=== PATIENT | female | born 2000 | race Caucasian/White ===

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

== ENCOUNTER 2018-01-05 18:35 | Emergency (ER) | payer MEDICAID ==
[~2018-01-05] VITALS: Ht 152.4 cm; Wt 59.0 kg
[~2018-01-05 18:35] MED LIST changes: +AMOXICILLIN500 M2 PO
[2018-01-05 18:36] VITALS: BP 127/73
== END 2018-01-05 19:36 | disposition home or self-care (01) ==
LOC: ED 18:35
DX: O9A.213 Injury, poisoning and certain other consequences of external causes complicating pregnancy, third trimester (principal); T17.890A Other foreign object in other parts of respiratory tract causing asphyxiation, initial encounter; Z3A.34 34 weeks gestation of pregnancy; Y92.9 Unspecified place or not applicable

== ENCOUNTER 2018-02-06 21:09 | Emergency (ER) | payer OTHER ==
[~2018-02-06] VITALS: Ht 152.4 cm; Wt 54.4 kg
[2018-02-06 23:09] VITALS: BP 112/78
== END 2018-02-06 23:20 | disposition short-term general hospital (02) ==
LOC: ED 21:09
DX: O63.0 Prolonged first stage (of labor) (principal); Z3A.37 37 weeks gestation of pregnancy

== ENCOUNTER 2018-02-22 18:00 | Emergency (ER) | payer OTHER ==
[~2018-02-22] VITALS: Ht 152.4 cm; Wt 49.9 kg
[2018-02-22 18:02] VITALS: BP 114/69
[2018-02-22] MEDS ORDERED: CEPHALEXIN500 M1 PO (18:19)
== END 2018-02-22 18:45 | disposition home or self-care (01) ==
LOC: ED 18:00
DX: N61.0 Mastitis without abscess (principal); F41.9 Anxiety disorder, unspecified

== ENCOUNTER 2018-10-05 22:26 | Emergency (ER) | payer OTHER ==
[~2018-10-05] VITALS: Ht 152.4 cm; Wt 45.4 kg
[~2018-10-05 22:26] MED LIST changes: +CEPHALEXIN500 M1 PO; +PYRIDIUM200 M1 PO; +SEPTDS PO
[2018-10-05 22:27] VITALS: BP 127/75
[2018-10-05] MEDS ORDERED: AUGMENTIN 875-875 MG PO (22:39)
[2018-10-05] MEDS ORDERED: NAPROSYN500 MG PO (22:39)
== END 2018-10-05 22:43 | disposition home or self-care (01) ==
LOC: ED 22:26
DX: K02.9 Dental caries, unspecified (principal); Z79.2 Long term (current) use of antibiotics; Z79.899 Other long term (current) drug therapy; Z87.442 Personal history of urinary calculi

== ENCOUNTER 2018-11-04 21:14 | Emergency (ER) | payer OTHER ==
[~2018-11-04] VITALS: Ht 152.4 cm; Wt 49.9 kg
[~2018-11-04 21:14] MED LIST changes: +AUGMENTIN 875-875 MG PO; +NAPROSYN500 MG PO
[2018-11-04 21:15] VITALS: BP 124/72
[2018-11-04 21:49] LABS: BASO % 0.3 % (0.0-1.0); EOS # 0.1 10*3/uL (0.0-0.4); EOS % 1.9 % (1.0-4.0); HEMATOCRIT 36.2 % (37.0-47.0); HEMOGLOBIN 11.6 g/dl (12.0-16.0); LYMPH # 2.6 10*3/uL (1.3-4.4); LYMPH % 38.5 % (27.0-41.0); MEAN CELL VOLUME 85.2 fl (81.0-99.0); MEAN CORPUSCULAR HGB 27.3 pg (27.0-31.0); MEAN PLATELET VOLUME 10.3 fl (9.6-12.3); MONO # 0.4 10*3/uL (0.1-1.0); MONO % 6.4 % (3.0-9.0); NEUT # 3.5 10*3/uL (2.3-7.9); NEUT % 52.8 % (47.0-73.0); PLATELET COUNT AUTOMATED 304 10*3/uL (130-400); RED BLOOD COUNT 4.25 10*6/uL (4.10-5.10); RED CELL DISTRI WIDTH 16.6 % (0-14.5); WHITE BLOOD COUNT 6.7 10*3/uL (4.8-10.8)
[2018-11-04 22:00] LABS: BILIRUBIN NEGATIVE (NEGATIVE); BLOOD TRACE-INTACT (NEGATIVE); CLARITY CLEAR (CLEAR); COLOR YELLOW (YELLOW); GLUCOSE NEGATIVE (NEGATIVE); KETONE NEGATIVE (NEGATIVE); LEUKO ESTERASE NEGATIVE (NEGATIVE); NITRITE NEGATIVE (NEGATIVE); PH 6.5 (5.0-9.0); SPECIFIC GRAVITY 1.015 (1.005-1.030); UROBILINOGEN 0.2 E.U./dl (0.2-1.0)
[2018-11-04 22:06] LABS: BACTERIA 1+; WBC 0-2 wbc/hpf (0-5)
[2018-11-04 22:11] LABS: ALBUMIN 3.5 gm/dl (3.1-4.5); ALKALINE PHOSPHATASE 111 U/L (45-117); BUN 13 mg/dl (7-24); CHLORIDE 107 mmol/L (98-107); CREATININE 0.83 mg/dL (0.55-1.02); LIPASE 102 U/L (73-393); POTASSIUM 3.9 mmol/L (3.5-5.1); SGOT/AST 10 IU/L (3-35); SGPT/ALT 17 U/L (12-78); SODIUM 140 mmol/L (136-145); TOTAL PROTEIN 7.2 gm/dL (6.4-8.2)
[2018-11-08 20:08] LABS: GONOCOCCUS BY NAA Negative (Negative)
[2019-02-22] MEDS ORDERED: PREDNISONE20 M1 PO (11:26)
[2019-02-22] MEDS ORDERED: AMOXICILLIN500 M2 PO (11:26)
[2019-02-22] MEDS ORDERED: FLONASE ALLERG9.9 ML NAS (11:26)
== END 2018-11-04 22:49 ==
LOC: ED 21:14
PROVIDERS: Student in an Organized Health Care Education/Training Program
DX: R10.9 Unspecified abdominal pain (principal); M54.5 Low back pain; F17.200 Nicotine dependence, unspecified, uncomplicated; Z79.899 Other long term (current) drug therapy

== ENCOUNTER 2019-05-14 13:34 | Emergency (ER) | payer SELFPAY ==
[~2019-05-14] VITALS: Ht 152.4 cm; Wt 49.9 kg
[~2019-05-14 13:34] MED LIST changes: +FLONASE ALLERG9.9 ML NAS; +PREDNISONE20 M1 PO
[2019-05-14 13:35] VITALS: BP 107/66
[2019-05-14] MEDS ORDERED: ZYRTEC10 MG PO (14:34)
[2019-05-14] MEDS ORDERED: AMOXICILLIN500 M2 PO (14:34)
[2019-05-14] MEDS ORDERED: FLONASE ALLERG9.9 ML NAS (14:34)
== END 2019-05-14 15:33 | disposition home or self-care (01) ==
LOC: ED 13:34
DX: J32.9 Chronic sinusitis, unspecified (principal); F17.200 Nicotine dependence, unspecified, uncomplicated; Z32.02 Encounter for pregnancy test, result negative; Z79.899 Other long term (current) drug therapy; Z79.2 Long term (current) use of antibiotics

== ENCOUNTER 2019-10-19 20:59 | Emergency (ER) | payer OTHER ==
[~2019-10-19] VITALS: Wt 49.9 kg
[~2019-10-19 20:59] MED LIST changes: +ZYRTEC10 MG PO
[2019-10-19 21:10] VITALS: BP 132/72
[2019-10-19 21:57] LABS: BILIRUBIN NEGATIVE (NEGATIVE); CLARITY CLOUDY (CLEAR); COLOR YELLOW (YELLOW); GLUCOSE NEGATIVE (NEGATIVE); KETONE NEGATIVE (NEGATIVE)
[2019-10-19 21:58] LABS: BLOOD NEGATIVE (NEGATIVE); LEUKO ESTERASE TRACE (NEGATIVE); NITRITE NEGATIVE (NEGATIVE); UROBILINOGEN 0.2 E.U./dl (0.2-1.0)
[2019-10-19] MEDS ORDERED: PROAIR HFA8.5 GM INH (22:40)
[2019-10-19] MEDS ORDERED: PREDNISONE20 M1 PO (22:40)
[2019-10-19] MEDS ORDERED: TESSALON PERLE100 M1 PO (22:40)
[2019-10-22 04:08] LABS: GONOCOCCUS BY NAA Negative (Negative)
== END 2019-10-19 23:28 | disposition home or self-care (01) ==
LOC: ED 20:59
PROVIDERS: Physician Assistant
DX: J40 Bronchitis, not specified as acute or chronic (principal); M54.5 Low back pain; R30.0 Dysuria; N89.8 Other specified noninflammatory disorders of vagina; Z20.2 Contact with and (suspected) exposure to infections with a predominantly sexual mode of transmission; F17.200 Nicotine dependence, unspecified, uncomplicated; Z79.899 Other long term (current) drug therapy; Z79.2 Long term (current) use of antibiotics

== ENCOUNTER 2020-03-29 23:58 | Emergency (ER) | payer OTHER ==
[~2020-03-29] VITALS: Ht 152.4 cm; Wt 50.8 kg
[~2020-03-29 23:58] MED LIST changes: +PROAIR HFA8.5 GM INH; +TESSALON PERLE100 M1 PO
[2020-03-30 00:49] LABS: BASO % 0.2 % (0.0-1.0); EOS % 0.8 % (1.0-4.0); HEMATOCRIT 40.1 % (37.0-47.0); LYMPH # 2.1 10*3/uL (1.3-4.4); LYMPH % 39.3 % (27.0-41.0); MEAN CELL VOLUME 87.7 fl (81.0-99.0); MEAN CORPUSCULAR HGB CONC 31.9 g/dl (33.0-37.0); MEAN PLATELET VOLUME 10.3 fl (9.6-12.3); MONO # 0.3 10*3/uL (0.1-1.0); MONO % 5.9 % (3.0-9.0); NEUT # 2.8 10*3/uL (2.3-7.9); NEUT % 53.6 % (47.0-73.0); PLATELET COUNT AUTOMATED 259 10*3/uL (130-400); RED BLOOD COUNT 4.57 10*6/uL (4.10-5.10); RED CELL DISTRI WIDTH 15.9 % (0-14.5); WHITE BLOOD COUNT 5.2 10*3/uL (4.8-10.8)
[2020-03-30 01:06] LABS: ALBUMIN 3.8 gm/dl (3.1-4.5); ALKALINE PHOSPHATASE 131 U/L (45-117); BUN 9 mg/dl (7-24); CHLORIDE 107 mmol/L (98-107); CREATININE 0.54 mg/dL (0.55-1.02); POTASSIUM 3.7 mmol/L (3.5-5.1); SGOT/AST 61 IU/L (3-35); SGPT/ALT 227 U/L (12-78); SODIUM 141 mmol/L (136-145); TOTAL PROTEIN 8.1 gm/dL (6.4-8.2)
[2020-03-30 01:07] LABS: BACTERIA 4+; BILIRUBIN NEGATIVE (NEGATIVE); BLOOD 1+ (NEGATIVE); CLARITY SL CLOUDY (CLEAR); COLOR YELLOW (YELLOW); EPITHELIAL CELLS 16-20; GLUCOSE NEGATIVE (NEGATIVE); KETONE NEGATIVE (NEGATIVE); LEUKO ESTERASE 1+ (NEGATIVE); NITRITE POSITIVE (NEGATIVE); SPECIFIC GRAVITY 1.015 (1.005-1.030)
[2020-03-30 01:32] LABS: URINE AMPHETAMINES < 1000 (1000ng/ml); URINE BARBITURATES < 200 (200ng/ml); URINE BENZODIAZEPINES < 200 (200ng/ml); URINE CANNABINOIDS (THC) > 50 (50ng/ml); URINE COCAINE > 300 (300ng/ml); URINE METHADONE < 300 (300ng/ml); URINE OPIATES > 300 (300ng/ml); URINE PHENCYCLIDINE < 25 (25ng/ml)
[2020-03-30 03:36] VITALS: BP 110/58
[2020-03-30] MEDS ORDERED: CEPHALEXIN500 M1 PO (04:06)
== END 2020-03-30 04:55 | disposition home or self-care (01) ==
LOC: ED 23:58
PROVIDERS: Emergency Medicine; Physician Assistant
DX: N39.0 Urinary tract infection, site not specified (principal); F19.10 Other psychoactive substance abuse, uncomplicated; R11.10 Vomiting, unspecified

== ENCOUNTER 2021-02-08 22:11 | Emergency (ER) | payer OTHER ==
[2021-02-08 22:25] LABS: BILIRUBIN Negative (Negative); BLOOD Negative (Negative); CLARITY Clear (Clear); COLOR Yellow (Yellow); GLUCOSE Negative (Negative); KETONE Trace (Negative); LEUKO ESTERASE Trace (Negative); NITRITE Negative (Negative); PH 5.5 (4.5-8.0); SPECIFIC GRAVITY >= 1.030 (1.001-1.030)
[2021-02-08 23:03] LABS: URINE AMPHETAMINES > 1000 (1000ng/ml); URINE BARBITURATES < 200 (200ng/ml); URINE BENZODIAZEPINES < 200 (200ng/ml); URINE CANNABINOIDS (THC) > 50 (50ng/ml); URINE COCAINE > 300 (300ng/ml); URINE METHADONE < 300 (300ng/ml); URINE OPIATES < 300 (300ng/ml)
[2021-02-08 23:04] LABS: URINE PHENCYCLIDINE < 25 (25ng/ml)
[2021-02-08 23:16] LABS: BACTERIA 1+; EPITHELIAL CELLS 21-30
[2021-02-09] VITALS: BP 134/78
[2021-02-09 00:08] LABS: BASO % 0.2 % (0.0-1.0); EOS # 0.1 10*3/uL (0.0-0.4); EOS % 0.6 % (1.0-4.0); HEMATOCRIT 40.7 % (37.0-47.0); LYMPH % 27.9 % (27.0-41.0); MEAN CELL VOLUME 84.3 fl (81.0-99.0); MEAN CORPUSCULAR HGB 28.6 pg (27.0-31.0); MEAN CORPUSCULAR HGB CONC 33.9 g/dl (33.0-37.0); MEAN PLATELET VOLUME 9.7 fl (9.6-12.3); MONO # 0.8 10*3/uL (0.1-1.0); MONO % 7.2 % (3.0-9.0); NEUT # 6.9 10*3/uL (2.3-7.9); NEUT % 63.8 % (47.0-73.0); PLATELET COUNT AUTOMATED 259 10*3/uL (130-400); RED BLOOD COUNT 4.83 10*6/uL (4.10-5.10); RED CELL DISTRI WIDTH 14.2 % (0-14.5); WHITE BLOOD COUNT 10.8 10*3/uL (4.8-10.8)
[2021-02-09 00:30] LABS: BUN 20 mg/dl (7-24); CHLORIDE 103 mmol/L (98-107); CREATININE 0.78 mg/dL (0.55-1.02); POTASSIUM 3.3 mmol/L (3.5-5.1); SODIUM 136 mmol/L (136-145)
== END 2021-02-09 06:07 | disposition home or self-care (01) ==
LOC: ED 22:11
PROVIDERS: Internal Medicine
DX: T50.901A Poisoning by unspecified drugs, medicaments and biological substances, accidental (unintentional), initial encounter (principal); R41.82 Altered mental status, unspecified; E87.6 Hypokalemia; Z79.899 Other long term (current) drug therapy; Z79.2 Long term (current) use of antibiotics; Y92.89 Other specified places as the place of occurrence of the external cause

== ENCOUNTER 2022-01-22 21:15 | Emergency (ER) | payer OTHER ==
[~2022-01-22] VITALS: Ht 154.9 cm; Wt 45.4 kg
[2022-01-22 21:27] VITALS: BP 134/100
[2022-01-22 21:55] LABS: HEMATOCRIT 44.4 % (37.0-47.0); MEAN CELL VOLUME 83.9 fl (81.0-99.0); MEAN CORPUSCULAR HGB 26.5 pg (27.0-31.0); MEAN CORPUSCULAR HGB CONC 31.5 g/dl (33.0-37.0); MEAN PLATELET VOLUME 9.4 fl (9.6-12.3); PLATELET COUNT AUTOMATED 212 10*3/uL (130-400); RED BLOOD COUNT 5.29 10*6/uL (4.10-5.10); RED CELL DISTRI WIDTH 15.9 % (0-14.5); WHITE BLOOD COUNT 2.3 10*3/uL (4.8-10.8)
[2022-01-22 21:56] LABS: MANUAL DIFF REFLEX YES
[2022-01-22 22:09] LABS: ALKALINE PHOSPHATASE 103 U/L (45-117); BUN 10 mg/dl (7-24); CHLORIDE 107 mmol/L (98-107); CREATININE 0.84 mg/dL (0.55-1.02); POTASSIUM 4.2 mmol/L (3.5-5.1); SGOT/AST 18 IU/L (3-35); SGPT/ALT 22 U/L (12-78); SODIUM 140 mmol/L (136-145)
[2022-01-22 22:11] VITALS: BP 129/82
[2022-01-22 22:12] LABS: B-hCG (QUALITATIVE) NEGATIVE (NEGATIVE)
[2022-01-22 22:29] LABS: ATYPICAL LYMPHS 3 % (0-0); PLATELET SUFFICIENCY NORMAL (NORMAL); TOTAL CELLS COUNTED 100 #CELLS
[2022-01-22 23:00] VITALS: BP 118/72
[2022-01-23 00:14] VITALS: BP 105/54
[2022-01-23 01:33] VITALS: BP 100/58
== END 2022-01-23 02:16 | disposition left against medical advice (07) ==
LOC: ED 21:15 → EDHOLD 01-23 01:04 → ED 01-23 01:04
PROVIDERS: Physician Assistant
DX: A41.9 Sepsis, unspecified organism (principal); L02.611 Cutaneous abscess of right foot; L03.115 Cellulitis of right lower limb; R00.0 Tachycardia, unspecified; E16.2 Hypoglycemia, unspecified; D72.819 Decreased white blood cell count, unspecified; F17.200 Nicotine dependence, unspecified, uncomplicated

== ENCOUNTER 2022-01-23 08:46 | Inpatient (IN) | payer OTHER ==
[~2022-01-23] VITALS: Ht 154.9 cm; Wt 47.9 kg
[2022-01-23] VITALS (9 sets, daily range): BP systolic 88–134; BP diastolic 48–86
[2022-01-23 09:56] LABS: BASO % 0.3 % (0.0-1.0); EOS % 0.3 % (1.0-4.0); HEMATOCRIT 38.5 % (37.0-47.0); LYMPH % 50.8 % (27.0-41.0); MEAN CELL VOLUME 84.4 fl (81.0-99.0); MEAN CORPUSCULAR HGB 26.8 pg (27.0-31.0); MEAN CORPUSCULAR HGB CONC 31.7 g/dl (33.0-37.0); MEAN PLATELET VOLUME 10.4 fl (9.6-12.3); MONO # 0.2 10*3/uL (0.1-1.0); MONO % 5.2 % (3.0-9.0); NEUT # 1.7 10*3/uL (2.3-7.9); NEUT % 43.4 % (47.0-73.0); PLATELET COUNT AUTOMATED 201 10*3/uL (130-400); RED BLOOD COUNT 4.56 10*6/uL (4.10-5.10); RED CELL DISTRI WIDTH 15.9 % (0-14.5); WHITE BLOOD COUNT 3.9 10*3/uL (4.8-10.8)
[2022-01-23 10:04] LABS: ALKALINE PHOSPHATASE 96 U/L (45-117); BUN 6 mg/dl (7-24); CHLORIDE 109 mmol/L (98-107); CREATININE 0.57 mg/dL (0.55-1.02); LIPASE 41 U/L (73-393); POTASSIUM 3.5 mmol/L (3.5-5.1); SGOT/AST 14 IU/L (3-35); SGPT/ALT 18 U/L (12-78); SODIUM 138 mmol/L (136-145); TOTAL PROTEIN 8.3 gm/dL (6.4-8.2)
[2022-01-23 10:08] LABS: ACT PARTIAL THROMBO TIME 30.8 SECONDS (20.0-32.1)
[2022-01-23 10:13] LABS: BETA-HCG, QUANT < 1.0 mIU/mL (1-3)
[2022-01-23 17:05] LABS: BILIRUBIN Negative (Negative); BLOOD Negative (Negative); CLARITY Clear (Clear); COLOR Yellow (Yellow); GLUCOSE Negative (Negative); KETONE Negative (Negative); LEUKO ESTERASE Negative (Negative); NITRITE Negative (Negative); SPECIFIC GRAVITY 1.025 (1.001-1.030)
[2022-01-23 17:14] LABS: BACTERIA 1+; MUCOUS 2+; WBC 0-2 wbc/hpf (0-5)
[2022-01-23 17:15] LABS: URINE AMPHETAMINES > 1000 (1000ng/ml); URINE BARBITURATES < 200 (200ng/ml); URINE BENZODIAZEPINES < 200 (200ng/ml); URINE CANNABINOIDS (THC) > 50 (50ng/ml); URINE COCAINE > 300 (300ng/ml); URINE METHADONE < 300 (300ng/ml); URINE OPIATES > 300 (300ng/ml)
[2022-01-23 17:24] LABS: URINE PHENCYCLIDINE < 25 (25ng/ml)
== END 2022-01-24 00:30 | disposition left against medical advice (07) | DRG 720 ==
LOC: ED 08:46 → EDHOLD 10:13 → 4E 15:12
PROVIDERS: Emergency Medicine; Internal Medicine; ADMIT Internal Medicine; ATTEND Internal Medicine
PROC: 0JBQ0ZZ Excision of Right Foot Subcutaneous Tissue and Fascia, Open Approach (ICD-10-PCS; principal; 2022-01-23)
DX: A41.9 Sepsis, unspecified organism (principal); L02.611 Cutaneous abscess of right foot; D70.9 Neutropenia, unspecified; E87.8 Other disorders of electrolyte and fluid balance, not elsewhere classified; F17.210 Nicotine dependence, cigarettes, uncomplicated; S91.301A Unspecified open wound, right foot, initial encounter; F14.10 Cocaine abuse, uncomplicated; F19.90 Other psychoactive substance use, unspecified, uncomplicated; Z53.29 Procedure and treatment not carried out because of patient's decision for other reasons; Z79.51 Long term (current) use of inhaled steroids; Z79.899 Other long term (current) drug therapy; Y93.89 Activity, other specified; Y92.89 Other specified places as the place of occurrence of the external cause; Y99.8 Other external cause status

== ENCOUNTER → 2023-12-11 | Outpatient (CLI) | payer MEDICAID | END | disposition home or self-care (01) | LOC: LAB 08:09 | PROVIDERS: ATTEND Nurse Practitioner | DX: F11.20 Opioid dependence, uncomplicated (principal) ==

== ENCOUNTER 2024-01-08 16:00 | Emergency (ER) | payer MEDICAID ==
[~2024-01-08] VITALS: Ht 154.9 cm; Wt 51.3 kg
[2024-01-08 16:09] VITALS: BP 135/78
[2024-01-08] MEDS ORDERED: BUPRENORPHINE-1 EAC1 SL (16:10)
[2024-01-08] MEDS ORDERED: GABAPENTIN600 MG PO (16:10)
[2024-01-08] MEDS ORDERED: CLONIDINE HCL0.2 MG PO (16:10)
[2024-01-08] MEDS ORDERED: Tdap Vaccine 0.5 ML SYR (Adult Vaccine) IM ONE (17:35)
[2024-01-08] MEDS ORDERED: SEPTDS PO (17:36)
== END 2024-01-08 17:45 | disposition home or self-care (01) ==
LOC: ED 16:00
DX: L02.415 Cutaneous abscess of right lower limb (principal); Z98.890 Other specified postprocedural states; F14.10 Cocaine abuse, uncomplicated; F17.200 Nicotine dependence, unspecified, uncomplicated

== ENCOUNTER 2024-01-18 19:00 | Emergency (ER) | payer MEDICAID ==
[~2024-01-18] VITALS: Ht 167.6 cm; Wt 52.2 kg
[~2024-01-18 19:00] MED LIST changes: +BUPRENORPHINE-1 EAC1 SL; +CLONIDINE HCL0.2 MG PO; +GABAPENTIN600 MG PO
[2024-01-18 19:14] VITALS: BP 139/82
== END 2024-01-18 19:33 | disposition home or self-care (01) ==
LOC: ED 19:00
DX: Z48.00 Encounter for change or removal of nonsurgical wound dressing (principal); Z98.890 Other specified postprocedural states; F14.10 Cocaine abuse, uncomplicated; F17.200 Nicotine dependence, unspecified, uncomplicated; F19.10 Other psychoactive substance abuse, uncomplicated

== ENCOUNTER → 2024-01-28 | Outpatient (CLI) | payer MEDICAID | END | disposition home or self-care (01) | LOC: WOUNDCARE 00:32 | PROVIDERS: ATTEND Nurse Practitioner Family | DX: T81.30XA Disruption of wound, unspecified, initial encounter (principal); L02.415 Cutaneous abscess of right lower limb; L53.9 Erythematous condition, unspecified; R60.9 Edema, unspecified; B20 Human immunodeficiency virus [HIV] disease; F17.210 Nicotine dependence, cigarettes, uncomplicated; Y83.8 Other surgical procedures as the cause of abnormal reaction of the patient, or of later complication, without mention of misadventure at the time of the procedure; Y92.89 Other specified places as the place of occurrence of the external cause ==

== ENCOUNTER → 2025-05-31 | Outpatient (CLI) | payer MEDICAID ==
[2025-05-31 12:08] LABS: MEAN CELL VOLUME 88.5 fl (81.0-99.0); MEAN CORPUSCULAR HGB 29.3 pg (27.0-31.0); MEAN PLATELET VOLUME 11.3 fl (9.6-12.3); NUCLEATED RED BLOOD CELL 0.0 % (0.0-0.0); NUCLEATED RED BLOOD CELL 0.0 10*3/uL (0.0-0.0); PLATELET COUNT AUTOMATED 172 10*3/uL (130-400); RED CELL DISTRI WIDTH 13.5 % (0-14.5)
[2025-05-31 12:27] LABS: MANUAL DIFF REFLEX YES
[2025-05-31 12:30] LABS: BASOPHILS 1 % (0-1); PLATELET SUFFICIENCY NORMAL (NORMAL)
[2025-05-31 12:53] LABS: BUN 7 mg/dl (9-23); SGPT/ALT 10 U/L (5-49)
[2025-05-31 16:24] LABS: URINE AMPHETAMINES Negative (1000ng/ml); URINE BARBITURATES Negative (200ng/ml); URINE BENZODIAZEPINES Negative (200ng/ml); URINE CANNABINOIDS (THC) Positive (50ng/ml); URINE COCAINE Negative (300ng/ml); URINE METHADONE Negative (300ng/ml); URINE OPIATES Negative (300ng/ml); URINE PHENCYCLIDINE Negative (25ng/ml)
== END | disposition home or self-care (01) ==
LOC: LAB 10:52
PROVIDERS: ATTEND Physician Assistant
DX: T43.205A Adverse effect of unspecified antidepressants, initial encounter (principal); F11.20 Opioid dependence, uncomplicated; F41.1 Generalized anxiety disorder; G47.00 Insomnia, unspecified; G56.00 Carpal tunnel syndrome, unspecified upper limb; Z51.81 Encounter for therapeutic drug level monitoring; Z32.02 Encounter for pregnancy test, result negative; Z79.899 Other long term (current) drug therapy; X58.XXXA Exposure to other specified factors, initial encounter; Y93.89 Activity, other specified; Y92.89 Other specified places as the place of occurrence of the external cause; Y99.8 Other external cause status

== ENCOUNTER 2025-07-01 15:22 | Emergency (ER) | payer OTHER, MEDICAID ==
[~2025-07-01] VITALS: Ht 154.9 cm; Wt 4.0 kg
[2025-07-01 15:30] VITALS: BP 123/88
[2025-07-01] MEDS ORDERED: Ondansetron Hydrochloride 4 MG TAB SL ONE (16:15)
[2025-07-01 16:43] LABS: BILIRUBIN Negative (Negative); BLOOD Negative (Negative); CLARITY Clear (Clear); COLOR Yellow (Yellow); KETONE 3+ (Negative); LEUKO ESTERASE Negative (Negative); NITRITE Negative (Negative); PH 5.5 (4.5-8.0); SPECIFIC GRAVITY >= 1.030 (1.001-1.030); UROBILINOGEN 1.0 E.U./dl (0.0-1.0)
[2025-07-01 16:52] LABS: EPITHELIAL CELLS 16-20; RBC 0-2 rbc/hpf (0-2); WBC 0-2 wbc/hpf (0-5)
[2025-07-01 16:56] LABS: BASO # 0.0 10*3/uL (0.0-0.1); BASO % 0.2 % (0.0-1.0); EOS # 0.0 10*3/uL (0.0-0.4); EOS % 0.5 % (1.0-4.0); MEAN CELL VOLUME 88.9 fl (81.0-99.0); MEAN CORPUSCULAR HGB 29.6 pg (27.0-31.0); MEAN PLATELET VOLUME 10.8 fl (9.6-12.3); MONO # 0.3 10*3/uL (0.1-1.0); MONO % 4.9 % (3.0-9.0); NEUT # 2.7 10*3/uL (2.3-7.9); NEUT % 47.7 % (47.0-73.0); NUCLEATED RED BLOOD CELL 0.0 % (0.0-0.0); NUCLEATED RED BLOOD CELL 0.0 10*3/uL (0.0-0.0); PLATELET COUNT AUTOMATED 185 10*3/uL (130-400); RED CELL DISTRI WIDTH 13.1 % (0-14.5)
[2025-07-01 17:39] LABS: BUN 6 mg/dl (9-23); SGPT/ALT 11 U/L (5-49)
[2025-07-01] MEDS ORDERED: COLACE100 MG PO (18:12)
[2025-07-01] MEDS ORDERED: ANUSOL-HC25 MG R (18:12)
[2025-07-01] MEDS ORDERED: MIRALAX POWDER17 G1 PO (18:12)
== END 2025-07-01 18:32 | disposition home or self-care (01) ==
LOC: ED 15:22
PROVIDERS: Nurse Practitioner Family
DX: K59.00 Constipation, unspecified (principal); K64.8 Other hemorrhoids; F41.9 Anxiety disorder, unspecified; F17.210 Nicotine dependence, cigarettes, uncomplicated

== ENCOUNTER 2025-07-28 11:20 | Emergency (ER) | payer MEDICAID ==
[~2025-07-28] VITALS: Ht 154.9 cm; Wt 63.5 kg
[~2025-07-28 11:20] MED LIST changes: +ANUSOL-HC25 MG R; +MIRALAX POWDER17 G1 PO
[2025-07-28 11:42] VITALS: BP 126/71
[2025-07-28] MEDS ORDERED: NAPROSYN500 MG PO (12:38)
== END 2025-07-28 12:51 | disposition home or self-care (01) ==
LOC: ED 11:20
DX: S60.221A Contusion of right hand, initial encounter (principal); F17.210 Nicotine dependence, cigarettes, uncomplicated; Z98.890 Other specified postprocedural states; W22.8XXA Striking against or struck by other objects, initial encounter; Y93.89 Activity, other specified; Y92.89 Other specified places as the place of occurrence of the external cause; Y99.8 Other external cause status